=== PATIENT | female | born 1945 | race Hispanic/Latino ===

== ENCOUNTER 2018-07-21 15:16 | Outpatient (CLI) | payer MEDICARE ==
[2018-07-27 06:38] LABS: Albumin 3.8 g/dL (3.8-4.8); Gamma Globulin 0.7 g/dL (0.8-1.7)
== END 2018-07-21 15:17 | disposition home or self-care (01) ==
LOC: LAB 15:16
PROVIDERS: ATTEND Nurse Practitioner Primary Care
DX: G62.9 Polyneuropathy, unspecified (principal); R79.89 Other specified abnormal findings of blood chemistry
CPT/HCPCS: 36415; 82306; 82607; 83036; 83921; 84165; 84443; 86334